=== PATIENT | female | born 1950 | race Caucasian/White ===

== ENCOUNTER → 2019-01-16 | Outpatient (CLI) | payer MEDICARE, OTHER ==
[~2019-01-16] MED LIST: HYDMOR2 PO; HYZAAR; LEVO750 PO; LOSARTAN-HCTZ1 EAC2 PO
== END | disposition home or self-care (01) ==
LOC: LAB SHORT 08:09 → PLD 08:09
DX: B35.1 Tinea unguium (principal)
CPT/HCPCS: 88305; 88312

== ENCOUNTER → 2019-02-12 | Outpatient (CLI) | payer MEDICARE, OTHER | END | disposition home or self-care (01) | LOC: PLD 12:30 → LAB SHORT 12:30 | DX: L72.9 Follicular cyst of the skin and subcutaneous tissue, unspecified (principal) | CPT/HCPCS: 88304 ==

== ENCOUNTER 2019-06-01 11:52 | Day surgery (SDC) | payer MEDICARE, OTHER ==
[~2019-06-01] VITALS: Ht 170.2 cm; Wt 112.2 kg
[~2019-06-01 11:52] MED LIST changes: +ALPR.5 PO; +Estrace Vagin42.5 GM; +FISH OIL + D31 EACH; +HYDCHL25 PO; +Lisinopril2.5 MG PO; +TRAM50 PO; +ZOLP5 PO
--- NOTE | 2019-06-01 14:00 | NUR ---
06/01/19 1400 Awilda Corey 2ML NACL USED FOR POLYP REMOVAL
--- NOTE | 2019-06-01 16:51 | NUR ---
06/01/19 5869 Awilda Corey PT.C/O IV SITE STINGING WHEN WOKE UP FROM HER PROCEDURE. WHEN IV WAS TAKEN OUT PT. ALSO C/O SITE STINGING. PT. INSTRUCTED THAT SHE COULD PUT A WARM PACK ON IT AT HOME IF BOTHERSOME. NO SWELLING AT SITE. NO REDNESS OBSERVED.
== END 2019-06-01 14:35 | disposition home or self-care (01) ==
LOC: ORSCSDS 11:52
PROVIDERS: Internal Medicine Gastroenterology
PROC: 0DBC8ZX Excision of Ileocecal Valve, Via Natural or Artificial Opening Endoscopic, Diagnostic (ICD-10-PCS; principal; 2019-06-01 13:15)
PROC: 0DBK8ZX Excision of Ascending Colon, Via Natural or Artificial Opening Endoscopic, Diagnostic (ICD-10-PCS; principal; 2019-06-01 13:15)
PROC: 0DBH8ZX Excision of Cecum, Via Natural or Artificial Opening Endoscopic, Diagnostic (ICD-10-PCS; principal; 2019-06-01 13:15)
DX: R19.5 Other fecal abnormalities (principal); D12.0 Benign neoplasm of cecum; D12.2 Benign neoplasm of ascending colon; K92.1 Melena; K57.30 Diverticulosis of large intestine without perforation or abscess without bleeding; K64.1 Second degree hemorrhoids; I10 Essential (primary) hypertension; Z79.899 Other long term (current) drug therapy
CPT/HCPCS: 88305; J2704; J7120

== ENCOUNTER 2020-08-06 11:43 | Day surgery (SDC) | payer MEDICARE, OTHER ==
[~2020-08-06] VITALS: Ht 170.2 cm; Wt 114.4 kg
--- NOTE | 2020-08-06 14:29 | NUR ---
08/06/20 1429 Katie Ryder PT RATES PAIN / AT THIS TIME IN ABDOMEN. IV FENTANYL ORDERED, HOWEVER PT STATES IT CAUSES PROJECTILE VOMITING AND SHE DOESN'T WANT IT. SHE STATES SHE IS OK WITHOUT PAIN MEDICATION AT THIS TIME
--- NOTE | 2020-08-06 15:31 | NUR ---
08/06/20 1531 Katie Ryder PT CONTINUES TO REPORT "SEVERE PAIN." DR AGUILAR AWARE, STANDING ORDERS FOR IV FENTANYL HOWEVER PT DENIES FENTANYL, STATING IT MAKES HER VOMIT PROFUSELY. PT CONVERSATING, LAYS STILL IN RECLINER. PT PLEASANT WHILE REVIEWING DC INSTRUCTIONS. BP ELEVATED, DR AGUILAR AWARE, RECIEVED ORDERS FOR IV LABETALOL HOWEVER BP RETURNED TO NORMAL LIMITS PRIOR TO ADMINISTRATION AT THIS TIME. TOLERATING PO SNACKS, PT DENIES NAUSEA.
== END 2020-08-06 16:28 | disposition home or self-care (01) ==
LOC: ORSCSDS 11:43
PROVIDERS: Surgery
PROC: 0WUF0JZ Supplement Abdominal Wall with Synthetic Substitute, Open Approach (ICD-10-PCS; principal; 2020-08-06 13:00)
DX: K43.6 Other and unspecified ventral hernia with obstruction, without gangrene (principal); I10 Essential (primary) hypertension; E66.01 Morbid (severe) obesity due to excess calories; Z68.39 Body mass index [BMI] 39.0-39.9, adult; Z79.899 Other long term (current) drug therapy
CPT/HCPCS: A9270; C1781; J0690; J1100; J2405; J2704; J3010; J7120

== ENCOUNTER → 2023-03-10 | Outpatient (CLI) | payer MEDICARE, OTHER | END | disposition home or self-care (01) | LOC: PLD 10:08 → LAB SHORT 10:08 | DX: D48.5 Neoplasm of uncertain behavior of skin (principal) | CPT/HCPCS: 88305 ==

== ENCOUNTER → 2023-03-30 | Outpatient (CLI) | payer MEDICARE, OTHER | LOC: LAB SHORT 15:13 → PLD 15:13 | DX: L72.9 Follicular cyst of the skin and subcutaneous tissue, unspecified (principal) | CPT/HCPCS: 88305 ==

== ENCOUNTER 2024-03-21 07:02 | Day surgery (SDC) | payer MEDICARE, OTHER ==
[~2024-03-21] VITALS: Ht 170.2 cm; Wt 110.0 kg
[~2024-03-21 07:02] MED LIST changes: +ALBU90OI INH; +Balanced Salt Epinephrine Irrigation Solution 500 mL IR SCH; +HYDROCHLOROTH12.5 MG PO; +Lidocaine HCl/Pf 1% 5 ML VIAL ONE; +Lidocaine HCl/Pf 1% 5 ML VIAL XX SCH; +META800 PO; +Moxifloxacin HCL 0.5 MG/0.1 ML 0.4MLSYR RIGHTEYE SCH; +NS 500 ML IV ONE; +PHENYLEPHRINE\\TROPICAMIDE\\TETRACAINE OPHTHALMIC DILATING SOLN RIGHTEYE PRN; +Povidone-Iodine 450 DROP/30 ML Solution ONE; +Povidone-Iodine 450 DROP/30 ML Solution RIGHTEYE SCH; +Tetracaine HCl/Pf 0.5% Opth Soln 4 ml ONE; +Triamcinolone Inj Susp 40 MG / ML 1ML Vial INJ SCH; +Triamcinolone Inj Susp 40 MG / ML 1ML Vial ONE
[2024-03-21] MEDS ORDERED: NS 500 ML IV ONE (07:38)
[2024-03-21] MEDS ORDERED: HYDHCL25 PO (07:41)
[2024-03-21] MEDS ORDERED: Midazolam HCl 1MG / ML 2ML Vial ONE (08:16)
[2024-03-21 08:51] VITALS: BP 145/71
== END 2024-03-21 09:02 | disposition home or self-care (01) ==
LOC: ORSCSDS 07:02
PROVIDERS: Ophthalmology
PROC: 08RJ3JZ Replacement of Right Lens with Synthetic Substitute, Percutaneous Approach (ICD-10-PCS; principal; 2024-03-21 08:30)
DX: H25.813 Combined forms of age-related cataract, bilateral (principal); I10 Essential (primary) hypertension; I71.40 Abdominal aortic aneurysm, without rupture, unspecified; E78.5 Hyperlipidemia, unspecified; K21.9 Gastro-esophageal reflux disease without esophagitis; E66.01 Morbid (severe) obesity due to excess calories; Z68.38 Body mass index [BMI] 38.0-38.9, adult; Z79.899 Other long term (current) drug therapy
CPT/HCPCS: J2003; J2250; J3301; J7040; V2632